=== PATIENT | female | born 1990 ===

== ENCOUNTER 2017-12-23 08:21 | Emergency (ER) | payer MEDICAID, OTHER ==
[2017-12-23] MEDS ORDERED: Sodium Chloride 0.9% 2.5 ML Syringe FLUSH PRN (08:27)
[2017-12-23] MEDS ORDERED: Sodium Chloride 0.9% 10 ML Syringe FLUSH PRN (08:27)
[2017-12-23] MEDS ORDERED: Sodium Chloride 0.9% 1,000 ML IV ONE (08:27)
--- NOTE | 2017-12-23 08:34 | EDM.PDOC ---
ED HPI GENERAL MEDICAL PROBLEM - General Chief Complaint: Abdominal Pain Stated Complaint: ABDOMINAL PAIN AND VOMITING Time Seen by Provider: 12/23/17 08:26 - History of Present Illness INITIAL COMMENTS - FREE TEXT/NARRATIVE: HISTORY AND PHYSICAL: History of present illness: Patient is 27-year-old female presents concerned acute right lower quadrant abdominal pain started approximately 4 AM she had a history of prior ovarian cyst with surgery she denies prior appendectomy cholecystectomy or other abdominal surgery. She denies vaginal discharge or bleeding she does not recall her last period was and states she is irregular. She denies fever chills Review of systems: As per history of present illness and below otherwise all systems reviewed and negative. Past medical history: As per history of present illness and as reviewed below otherwise noncontributory. Surgical history: As per history of present illness and as reviewed below otherwise noncontributory. Social history: No reported history of drug or alcohol abuse. Family history: As per history of present illness and as reviewed below otherwise noncontributory. Physical exam: HEENT: Atraumatic, normocephalic, pupils reactive, negative for conjunctival pallor or scleral icterus, mucous membranes moist, throat clear, neck supple, nontender, trachea midline. Lungs: Clear to auscultation, breath sounds equal bilaterally, chest nontender. Heart: S1S2, regular, negative for clicks, rubs, or JVD. Abdomen: Soft, nondistended, nonlocalized right-sided tenderness no rebound no guarding Negative for masses or hepatosplenomegaly. Negative for costovertebral tenderness. Pelvis: Stable nontender. Genitourinary: Deferred. Rectal: Deferred. Extremities: Atraumatic, negative for cords or calf pain. Neurovascular unremarkable. Neuro: Awake, alert, oriented. Cranial nerves II through XII unremarkable. Cerebellum unremarkable. Motor and sensory unremarkable throughout. Exam nonfocal. Diagnostics: CBC CMP UA urine culture and sensitivity UDS hCG CT abdomen and pelvis Therapeutics: Normal saline 1 L bolus Impression: #1 acute right-sided abdominal pain Definitive disposition and diagnosis as appropriate pending reevaluation and review of above. - Related Data Allergies Allergy/AdvReac Type Severity Reaction Status Date / Time No Known Allergies Allergy Verified 12/23/17 08:34 Home Meds: Home Meds . [No Known Home Meds] 09/26/14 [History] Past Medical History - Past Health History Medical/Surgical History: Denies Medical/Surgical History ED ROS GENERAL - Review of Systems Review Of Systems: ROS reveals no pertinent complaints other than HPI. ED EXAM, GENERAL - Physical Exam Exam: See Below (See dictation) Course - Vital Signs Last Recorded V/S: Last Vital Signs Temp 35.9 C 12/23/17 08:34 Pulse 54 L 12/23/17 08:34 Resp 16 12/23/17 08:34 BP 121/89 12/23/17 08:34 Pulse Ox 100 12/23/17 08:34 - Orders/Labs/Meds Orders: Active Orders 24 hr Category Date Time Status CULTURE URINE [RM] Stat Lab 12/23/17 09:38 Ordered DRUG SCREEN, URINE [URCHEM] Stat Lab 12/23/17 09:38 Ordered UA W/MICROSCOPIC [URIN] Stat Lab 12/23/17 09:38 Ordered Sodium Chloride 0.9% [Saline Flush] Med 12/23/17 08:27 Active 10 ml FLUSH ASDIRECTED PRN Sodium Chloride 0.9% [Saline Flush] Med 12/23/17 08:27 Active 2.5 ml FLUSH ASDIRECTED PRN Saline Lock Insert [OM.PC] Stat Oth 12/23/17 08:26 Ordered Medication Orders Sodium Chloride (Saline Flush) 10 ml FLUSH ASDIRECTED PRN PRN Reason: Keep Vein Open Sodium Chloride (Saline Flush) 2.5 ml FLUSH ASDIRECTED PRN PRN Reason: Keep Vein Open Labs: Laboratory Tests 12/23/17 12/23/17 12/23/17 Range/Units 08:40 08:40 08:40 WBC 13.37 H (4.0-11.0) K/uL RBC 4.49 (4.30-5.90) M/uL Hgb 14.2 (12.0-16.0) g/dL Hct 41.3 (36.0-46.0) % MCV 92.0 (80.0-98.0) fL MCH 31.6 (27.0-32.0) pg MCHC 34.4 (31.0-37.0) g/dL RDW Std Deviation 41.9 (28.0-62.0) fl RDW Coeff of Nelly 13 (11.0-15.0) % Plt Count 224 (150-400) K/uL MPV 10.50 (7.40-12.00) fL Neut % (Auto) 82.6 H (48.0-80.0) % Lymph % (Auto) 11.3 L (16.0-40.0) % Motley % (Auto) 5.2 (0.0-15.0) % Eos % (Auto) 0.8 (0.0-7.0) % Baso % (Auto) 0.1 (0.0-1.5) % Neut # (Auto) 11.0 H (1.4-5.7) K/uL Lymph # (Auto) 1.5 (0.6-2.4) K/uL Motley # (Auto) 0.7 (0.0-0.8) K/uL Eos # (Auto) 0.1 (0.0-0.7) K/uL Baso # (Auto) 0.0 (0.0-0.1) K/uL Nucleated RBC % 0.0 /100WBC Nucleated RBCs # 0 K/uL Sodium 139 (136-145) mmol/L Potassium 4.2 (3.5-5.1) mmol/L Chloride 105 (98-107) mmol/L Carbon Dioxide 24.2 (21.0-32.0) mmol/L BUN 22 H (7.0-18.0) mg/dL Creatinine 1.2 H (0.6-1.0) mg/dL Est Cr Clr Drug Dosing 64.76 mL/min Estimated GFR (MDRD) 53.1 ml/min Glucose 127 H (74-106) mg/dL Calcium 9.2 (8.5-10.1) mg/dL Total Bilirubin 0.8 (0.2-1.0) mg/dL AST 18 (15-37) IU/L ALT 22 (14-63) IU/L Alkaline Phosphatase 31 L (46-116) U/L Total Protein 7.2 (6.4-8.2) g/dL Albumin 4.1 (3.4-5.0) g/dL Globulin 3.1 (2.0-3.5) g/dL Albumin/Globulin Ratio 1.3 (1.3-2.8) HCG, Qual NEGATIVE (NEG) Urine Color Urine Appearance Urine pH (5.0-8.0) Ur Specific [place] (1.001-1.035) Urine Protein (NEGATIVE) mg/dL Urine Glucose (UA) (NEGATIVE) mg/dL Urine Ketones (NEGATIVE) mg/dL Urine Occult Blood (NEGATIVE) Urine Nitrite (NEGATIVE) Urine Bilirubin (NEGATIVE) Urine Urobilinogen (<2.0) EU/dL Ur Leukocyte Esterase (NEGATIVE) Urine RBC (0-2/HPF) Urine WBC (0-5/HPF) Ur Epithelial Cells (NONE-FEW) Urine Bacteria (NEGATIVE) Urine Mucus (NONE-MOD) Urine Opiates Screen (NEGATIVE) Ur Oxycodone Screen (NEGATIVE) Urine Methadone Screen (NEGATIVE) Ur Barbiturates Screen (NEGATIVE) Ur Phencyclidine Scrn (NEGATIVE) Ur Amphetamine Screen (NEGATIVE) U Methamphetamines Scrn (NEGATIVE) U Benzodiazepines Scrn (NEGATIVE) U Cocaine Metab Screen (NEGATIVE) U Marijuana (THC) Screen (NEGATIVE) 12/23/17 12/23/17 Range/Units 09:38 09:38 WBC (4.0-11.0) K/uL RBC (4.30-5.90) M/uL Hgb (12.0-16.0) g/dL Hct (36.0-46.0) % MCV (80.0-98.0) fL MCH (27.0-32.0) pg MCHC (31.0-37.0) g/dL RDW Std Deviation (28.0-62.0) fl RDW Coeff of Nelly (11.0-15.0) % Plt Count (150-400) K/uL MPV (7.40-12.00) fL Neut % (Auto) (48.0-80.0) % Lymph % (Auto) (16.0-40.0) % Motley % (Auto) (0.0-15.0) % Eos % (Auto) (0.0-7.0) % Baso % (Auto) (0.0-1.5) % Neut # (Auto) (1.4-5.7) K/uL Lymph # (Auto) (0.6-2.4) K/uL [place] # (Auto) (0.0-0.8) K/uL Eos # (Auto) (0.0-0.7) K/uL Baso # (Auto) (0.0-0.1) K/uL Nucleated RBC % /100WBC Nucleated RBCs # K/uL Sodium (136-145) mmol/L Potassium (3.5-5.1) mmol/L Chloride (98-107) mmol/L Carbon Dioxide (21.0-32.0) mmol/L BUN (7.0-18.0) mg/dL Creatinine (0.6-1.0) mg/dL Est Cr Clr Drug Dosing mL/min Estimated GFR (MDRD) ml/min Glucose (74-106) mg/dL Calcium (8.5-10.1) mg/dL Total Bilirubin (0.2-1.0) mg/dL AST (15-37) IU/L ALT (14-63) IU/L Alkaline Phosphatase (46-116) U/L Total Protein (6.4-8.2) g/dL Albumin (3.4-5.0) g/dL Globulin (2.0-3.5) g/dL Albumin/Globulin Ratio (1.3-2.8) HCG, Qual (NEG) Urine Color DARK YELLOW Urine Appearance CLOUDY Urine pH 6.0 (5.0-8.0) Ur Specific [place] 1.025 (1.001-1.035) Urine Protein 30 (NEGATIVE) mg/dL Urine Glucose (UA) NEGATIVE (NEGATIVE) mg/dL Urine Ketones >=80 (NEGATIVE) mg/dL Urine Occult Blood LARGE H (NEGATIVE) Urine Nitrite NEGATIVE (NEGATIVE) Urine Bilirubin SMALL H (NEGATIVE) Urine Urobilinogen 0.2 (<2.0) EU/dL Ur Leukocyte Esterase NEGATIVE (NEGATIVE) Urine RBC TOO NUMBEROUS TO CT H (0-2/HPF) Urine WBC 0-2 (0-5/HPF) Ur Epithelial Cells OCCASIONAL (NONE-FEW) Urine Bacteria RARE (NEGATIVE) Urine Mucus LIGHT (NONE-MOD) Urine Opiates Screen NEGATIVE (NEGATIVE) Ur Oxycodone Screen NEGATIVE (NEGATIVE) Urine Methadone Screen NEGATIVE (NEGATIVE) Ur Barbiturates Screen NEGATIVE (NEGATIVE) Ur Phencyclidine Scrn NEGATIVE (NEGATIVE) Ur Amphetamine Screen NEGATIVE (NEGATIVE) U Methamphetamines Scrn NEGATIVE (NEGATIVE) U Benzodiazepines Scrn NEGATIVE (NEGATIVE) U Cocaine Metab Screen NEGATIVE (NEGATIVE) U Marijuana (THC) Screen NEGATIVE (NEGATIVE) Meds: Medications Generic Name Dose Route Start Last Admin Trade Name Jori PRN Reason Stop Dose Admin Sodium Chloride 10 ml 12/23/17 08:27 Saline Flush FLUSH ASDIRECTED PRN Keep Vein Open Sodium Chloride 2.5 ml 12/23/17 08:27 Saline Flush FLUSH ASDIRECTED PRN Keep Vein Open Discontinued Medications Generic Name Dose Route Start Last Admin Trade Name Jori PRN Reason Stop Dose Admin Hydromorphone HCl 1 mg 12/23/17 10:19 12/23/17 10:25 Dilaudid IVPUSH 12/23/17 10:20 1 mg ONETIME ONE Administration Sodium Chloride 1,000 mls @ 999 mls/hr 12/23/17 08:27 12/23/17 08:44 Normal Saline IV 12/23/17 09:27 999 mls/hr STAT ONE Administration Ketorolac Tromethamine 30 mg 12/23/17 09:11 12/23/17 09:14 Toradol IVPUSH 12/23/17 09:12 30 mg ONETIME ONE Administration Ondansetron HCl 4 mg 12/23/17 08:40 12/23/17 08:44 Zofran IVPUSH 12/23/17 08:41 4 mg ONETIME ONE Administration Ondansetron HCl 4 mg 12/23/17 10:19 12/23/17 10:25 Zofran IVPUSH 12/23/17 10:20 4 mg ONETIME ONE Administration Tamsulosin HCl 0.8 mg 12/23/17 09:35 Flomax PO 12/23/17 09:36 ONETIME ONE Departure - Departure Time of Disposition: 10:29 Disposition: Home, Self-Care 01 Condition: Good Clinical Impression: Urolithiasis - Discharge Information Referrals: PCP,None [Primary Care Provider] - Forms: ED Department Discharge Additional Instructions: The following information is given to patients seen in the emergency department who are being discharged to home. This information is to outline your options for follow-up care. We provide all patients seen in our emergency department with a follow-up referral. The need for follow-up, as well as the timing and circumstances, are variable depending upon the specifics of your emergency department visit. If you don't have a primary care physician on staff, we will provide you with a referral. We always advise you to contact your personal physician following an emergency department visit to inform them of the circumstance of the visit and for follow-up with them and/or the need for any referrals to a consulting specialist. The emergency department will also refer you to a specialist when appropriate. This referral assures that you have the opportunity for followup care with a specialist. All of these measure are taken in an effort to provide you with optimal care, which includes your followup. Under all circumstances we always encourage you to contact your private physician who remains a resource for coordinating your care. When calling for followup care, please make the office aware that this follow-up is from your recent emergency room visit. If for any reason you are refused follow-up, please contact the [facility] emergency department at and asked to speak to the emergency department charge nurse. [facility]rology [address] [place] [id number] Zofran Flomax hydrocodone as prescribed follow-up with urology tomorrow call office in a.m. return as needed as discussed - My Orders Last 24 Hours: My Active Orders 12/23/17 08:26 Saline Lock Insert [OM.PC] Stat 12/23/17 08:27 Sodium Chloride 0.9% [Saline Flush] 10 ml FLUSH ASDIRECTED PRN Sodium Chloride 0.9% [Saline Flush] 2.5 ml FLUSH ASDIRECTED PRN 12/23/17 09:38 CULTURE URINE [RM] Stat DRUG SCREEN, URINE [URCHEM] Stat UA W/MICROSCOPIC [URIN] Stat - Assessment/Plan Last 24 Hours: My Active Orders 12/23/17 08:26 Saline Lock Insert [OM.PC] Stat 12/23/17 08:27 Sodium Chloride 0.9% [Saline Flush] 10 ml FLUSH ASDIRECTED PRN Sodium Chloride 0.9% [Saline Flush] 2.5 ml FLUSH ASDIRECTED PRN 12/23/17 09:38 CULTURE URINE [RM] Stat DRUG SCREEN, URINE [URCHEM] Stat UA W/MICROSCOPIC [URIN] Stat
[2017-12-23] MEDS ORDERED: Ondansetron 4 MG/2 ML SDV IVPUSH ONE ×2 (08:40→10:19)
[2017-12-23] MEDS ORDERED: Ketorolac 30 MG/ML SDV IVPUSH ONE (09:11)
[2017-12-23] MEDS ORDERED: Tamsulosin 0.4 MG Cap.ER PO ONE (09:35)
--- NOTE | 2017-12-23 10:04 | CT ---
Abdomen and pelvis CT scan Clinical history: Right lower quadrant pain radiating to lower back. Comparison: CT scan September 26, 2014 Findings: Lung bases are clear of significant findings. Graft abdomen images demonstrate a homogeneou s liver with spleen upper normal limits in size and no evidence of pancreatic pathology for noncontra sted study. Gallbladder does not contain calcified calculi. There is evident anteroposterior orientat ion of the right kidney which is now obstructed with a proximal ureteral calculus that measures 5.3 m m. Bowel findings are unremarkable. Scanning through the lobe abdomen into the pelvis demonstrates resol ution of pre-existing tubo-ovarian abscess from prior study. There is a cyst in the left adnexa measu ring approximately 2 cm. Bony structures are unremarkable. Impression: Obstructive proximal right ureteral calculus measuring 5.3 mm. left ovarian cyst
[2017-12-23] MEDS ORDERED: HYDROmorphone 2 MG/ML SDV IVPUSH ONE (10:19)
[2017-12-23 11:22] VITALS: BP 98/52
== END 2017-12-23 10:50 | disposition home or self-care (01) ==
LOC: MW.ED 08:21
DX: N20.1 Calculus of ureter (principal); N83.202 Unspecified ovarian cyst, left side
CPT/HCPCS: 36415; 74176; 80053; 80305; 81001; 84703; 85025; 87086; 96361; 96374; 96375; 96376; 99284; A9270; J1170; J1885; J2405; J7040

== ENCOUNTER 2018-01-06 08:31 | Day surgery (SDC) | payer MEDICAID ==
[~2018-01-06 08:31] MED LIST: Lactated Ringers 1,000 ML IV SCH; Sodium Chloride 0.9% 10 ML Syringe FLUSH PRN; Sodium Chloride 0.9% 2.5 ML Syringe FLUSH PRN; ceFAZolin 1 GM Vial IM ONE
--- NOTE | 2018-01-06 10:09 | PCM.PREANE ---
Preanesthetic Assessment - Anesthesia/Transfusion/Family Hx Anesthesia History: Prior Anesthesia Reaction Type of Anesthesia Reaction: Excessive Nausea/Vomiting Family History of Anesthesia Reaction: No - Review of Systems General: No Symptoms Pulmonary: No Symptoms Cardiovascular: No Symptoms Gastrointestinal: No Symptoms Neurological: No Symptoms Other: Reports: None - Physical Assessment NPO Status Date: 01/05/18 NPO Status Time: 20:00 O2 Sat by Pulse Oximetry: 97 Respiratory Rate: 16 Vital Signs: Last Vital Signs Temp 36.7 C 01/06/18 09:20 Pulse 73 01/06/18 09:20 Resp 16 01/06/18 09:20 BP 107/57 L 01/06/18 09:20 Pulse Ox 97 01/06/18 09:20 Height: 1.68 m Weight: 68.492 kg ASA Class: 2 Mental Status: Alert & Oriented x3 Airway Class: Mallampati = 1 Dentition: Reports: Normal Dentition ROM/Head Extension: Full Lungs: Clear to Auscultation, Normal Respiratory Effort Cardiovascular: Regular Rate, Regular Rhythm - Lab Values: Laboratory Last Values Urine HCG, Qual NEGATIVE (NEGATIVE) 01/06/18 09:00 - Allergies Allergies/Adverse Reactions: Allergies Allergy/AdvReac Type Severity Reaction Status Date / Time No Known Allergies Allergy Verified 01/01/18 13:03 - Anesthesia Plan Pre-Op Medication Ordered: None - Acknowledgements Anesthesia Type Planned: General Anesthesia Pt an Appropriate Candidate for the Planned Anesthesia: Yes Alternatives and Risks of Anesthesia Discussed w Pt/Guardian: Yes Pt/Guardian Understands and Agrees with Anesthesia Plan: Yes PreAnesthesia Questionnaire - Past Health History Medical/Surgical History: Denies Medical/Surgical History Genitourinary History: Reports: Other (See Below) Other Genitourinary History: kidney stone presently [employer] History: Reports: - Past Surgical History Head Surgeries/Procedures: Reports: None Female Surgical History: Reports: Other (See Below) Other Female Surgeries/Procedures: laparoscopy with ovarian cystectomy - SUBSTANCE USE Smoking Status *Q: Current Every Day Smoker Tobacco Use Within Last Twelve Months: Cigarettes Recreational Drug Use History: No - HOME MEDS Home Medications: Home Meds Hydrocodone/Acetaminophen [Hydrocodon-Acetaminophen 5-325] 1 tab PO ASDIRECTED PRN 01/01/18 [History] - CURRENT (IN HOUSE) MEDS Current Meds: Current Medications Lactated Ringer's (Ringers, Lactated) 1,000 mls @ 100 mls/hr IV ASDIRECTED [place] Last Admin: 01/06/18 09:45 Dose: 100 mls/hr Sodium Chloride (Saline Flush) 10 ml FLUSH ASDIRECTED PRN PRN Reason: Keep Vein Open Sodium Chloride (Saline Flush) 2.5 ml FLUSH ASDIRECTED PRN PRN Reason: Keep Vein Open Discontinued Medications Cefazolin Sodium (Ancef) 1 gm IM ONCALL ONE Stop: 01/06/18 00:02
[2018-01-06] MEDS ORDERED: Lidocaine 2% 5 ML SDV ONE (10:48)
[2018-01-06] MEDS ORDERED: Propofol 200 MG/20 ML SDV ONE (10:48)
[2018-01-06] MEDS ORDERED: fentaNYL 250 MCG/5 ML SDV ONE (10:49)
[2018-01-06] MEDS ORDERED: Midazolam 1 MG/ML 2 ML SDV ONE (10:49)
[2018-01-06] MEDS ORDERED: Ondansetron 4 MG/2 ML SDV ONE (10:49)
[2018-01-06] MEDS ORDERED: Rocuronium 10 MG/ML 10 ML Syringe ONE (10:49)
[2018-01-06] MEDS ORDERED: Ketorolac 30 MG/ML SDV ONE (10:49)
[2018-01-06] MEDS ORDERED: Iopamidol 408 MG/ML 50 ML SDV ONE (11:32)
[2018-01-06] MEDS ORDERED: Sugammadex Sodium 200 MG/2 ML VIAL ONE (11:34)
[2018-01-06] MEDS ORDERED: fentaNYL 100 MCG/2 ML SDV IVPUSH PRN (12:45)
--- NOTE | 2018-01-06 13:26 | PCM.POSTAN ---
POST ANESTHESIA ASSESSMENT - MENTAL STATUS Mental Status: Alert, Oriented - RESPIRATORY Respiratory Status: Respiratory Rate WNL, Airway Patent, O2 Saturation Stable - CARDIOVASCULAR CV Status: Pulse Rate WNL, Blood Pressure Stable - GASTROINTESTINAL GI Status: No Symptoms - PAIN Pain Score: 0 - POST OP HYDRATION Hydration Status: Adequate & Stable
[2018-01-06 14:19] VITALS: BP 131/76
--- NOTE | 2018-01-06 14:22 | OR ---
SURGEON: Aissatou Butts M.D. DATE OF PROCEDURE: 01/06/2018 PREOPERATIVE DIAGNOSIS: Right ureteral stone. POSTOPERATIVE DIAGNOSIS: Right ureteral stone, stone not found. OPERATIONS: Cystoscopy, ureteroscopy, renoscopy, double-J stent placement. DESCRIPTION OF THE PROCEDURE: The patient was given general anesthesia. She was placed in dorsal lithotomy position, prepped and draped in sterile drapes. The cystoscope was introduced into the bladder without difficulty. The side of the bladder was examined and it was normal. A guidewire was advanced in the right ureter, appears to meet resistance. The stone was not visualized on fluoroscopy, but the stone was an almost radiolucent stone that was observed before. The lower ureter was then dilated using the UroMax II balloon dilator and the rigid ureteroscope was advanced in the right ureter all the way up into the UPJ and I did not see any stones. I placed the Glidewire through the rigid ureteroscope and now we have a guidewire and a Glidewire in the kidney. Over the Glidewire, I advanced the flexible ureteroscope, looked inside the kidney, all the collecting calices and did not find a stone. With that done, the procedure was terminated. I put a 6- [place] 26 centimeter double-J stent in, position was confirmed on fluoroscopy. The bladder was emptied and the patient was moved to recovery room in stable condition. PLAN: Since I used the IVP dye during the procedure, I will not do a CT now, but I will do CT in a day or 2 to confirm that the stone is gone or to find the stone. JENNA / ANA /[id number]
--- NOTE | 2018-01-06 14:57 | PCM48HPAN ---
Post Anesthesia Note - EVALUATION WITHIN 48HRS OF ANESTHETIC Vital Signs in Normal Range: Yes Patient Participated in Evaluation: Yes Respiratory Function Stable: Yes Airway Patent: Yes Cardiovascular Function Stable: Yes Hydration Status Stable: Yes Pain Control Satisfactory: Yes Nausea and Vomiting Control Satisfactory: Yes Mental Status Recovered: Yes Resp Rate: 15 - COMMENTS/OBSERVATIONS Free Text/Narrative:: no anesthesia problems
--- NOTE | 2018-01-06 15:41 | CR ---
EXAMINATION: Ureteroscopy HISTORY: Stent placement COMPARISON: Radiographs dated 12/31/2017 TECHNIQUE: 4 fluoroscopic images provided FINDINGS/IMPRESSION: Operative control films demonstrate selection of the right ureter a moderately d ilated proximal right renal collecting system. Subsequent stent placement is noted.
== END 2018-01-06 14:15 | disposition home or self-care (01) ==
LOC: MW.SDS 08:31
PROVIDERS: ATTEND Urology
DX: N20.1 Calculus of ureter (principal); F17.210 Nicotine dependence, cigarettes, uncomplicated; Z79.899 Other long term (current) drug therapy
CPT/HCPCS: 52332; 76000; 81025; C1769; C2625; J1885; J2250; J2405; J3010; J3490; J7120; Q9966; J2704